=== PATIENT | male | born 1995 | race Two or more races ===

== ENCOUNTER 2018-10-23 13:37 | Emergency (ER) | payer SELFPAY ==
[~2018-10-23] VITALS: Ht 167.6 cm; Wt 63.0 kg
[2018-10-23] MEDS ORDERED: PENICILLIN G BENZATHINE 1,200,000 UNITS/2ML SYR IM ONE (14:45)
[2018-10-23] MEDS ORDERED: DEXAMETHASONE 10 MG/ML VIAL IM ONE (14:45)
[2018-10-23 15:43] VITALS: BP 110/62
== END 2018-10-23 15:43 | disposition home or self-care (01) ==
LOC: ER 13:37
DX: J02.9 Acute pharyngitis, unspecified (principal); J03.90 Acute tonsillitis, unspecified; R03.0 Elevated blood-pressure reading, without diagnosis of hypertension
CPT/HCPCS: 87070; 87430; 96372; 99283; J0561; J1100

== ENCOUNTER 2022-07-30 15:24 | Emergency (ER) | payer SELFPAY ==
[~2022-07-30] VITALS: Ht 167.6 cm; Wt 63.0 kg
[2022-07-30 15:31] VITALS: BP 132/79
[2022-07-30] MEDS ORDERED: CEFTRIAXONE SODIUM 500 MG/VIAL IM ONE (17:45)
[2022-07-30] MEDS ORDERED: DOXYCYCLINE HYCLATE 100MG CAPSULE PO ONE (17:45)
[2022-07-30] MEDS ORDERED: DOXYCYCLINE HYCLATE 100MG CAPSULE PO NR (18:15)
[2022-07-30 19:05] LABS: CLARITY URINE CLEAR (CLEAR); COLOR URINE YELLOW (YELLOW); KETONES URINE TRACE (NEGATIVE); LEUKOCYTE ESTERASE URINE NEGATIVE (NEGATIVE); NITRITE URINE NEGATIVE (NEGATIVE); OCCULT BLOOD URINE NEGATIVE (NEGATIVE); PROTEIN URINE NEGATIVE (NEGATIVE)
[2022-07-30] MEDS ORDERED: DOXY100C5 MT (19:16)
[2022-08-03 04:10] LABS: HIV SCREEN 4G Non Reactive (Non Reactive)
[2022-08-04 09:07] LABS: NEISSERIA GONORRHOEAE NAA Negative (Negative)
== END 2022-07-30 19:10 | disposition home or self-care (01) ==
LOC: ER 15:24
DX: N48.89 Other specified disorders of penis (principal)
CPT/HCPCS: 81003; 86592; 87389; 87491; 87591; 96372; 99283; J0696; Z7610